=== PATIENT | female | born 1990 | race Two or more races ===

== ENCOUNTER → 2024-08-21 | Outpatient (CLI) | payer MEDICARE, OTHER, MEDICAID, SELFPAY ==
--- NOTE | 2024-08-21 15:45 | XR_ITS ---
Examination: Thyroid sonography complete TECHNIQUE: Multiple high resolution grayscale sonographic images thyroid region with carful analysis Exam date and time: August 21, 2024 1546 hours Comparison November 06, 2023 INDICATIONS: Status post left thyroidectomy 2020, thyroid cancer diagnosis FINDINGS: Right thyroid 5.3 x 1.8 x 1.8 cm No thyroid nodules Left thyroid bed hypoechoic oval mass consistent with a lymph node 8 x 6 x 6 mm IMPRESSION: 8 x 6 x 6 mm lymph node in the left thyroid bed stable compared to November 14, 2023
== END | disposition home or self-care (01) ==
PROVIDERS: PCP Internal Medicine Endocrinology, Diabetes & Metabolism; Referring Provider Internal Medicine Endocrinology, Diabetes & Metabolism; Visit Provider Internal Medicine Endocrinology, Diabetes & Metabolism
DX: N18.6 End stage renal disease (principal); E89.0 Postprocedural hypothyroidism; C73 Malignant neoplasm of thyroid gland
CPT/HCPCS: 76536